=== PATIENT | male | born 1930 | race Caucasian/White ===

== ENCOUNTER 2016-05-04 13:50 | Emergency (ER) | payer MEDICARE, OTHER, MEDICAID ==
[~2016-05-04] VITALS: Ht 185.4 cm; Wt 89.0 kg
[~2016-05-04 13:50] MED LIST: AMITRIPTYLINE H50 M1 PO; ASPIRIN 81M81 MG/TA2 PO; ATIVAN 0.50.5 MG/TAB PO; ATROVENT INHALE14 GM IH; CLARITIN 1010 MG/TAB PO; COLACE 100100 MG/CAP PO; CRESTOR20 MG PO; DEMADEX 20MG20 M1 PO; DILAUDID 4MG TAB4 MG PO; FLEXERIL 1010 MG/TAB PO; FLOMAX 0.40.4 MG/CAP PO; FORADIL AERO0.012 MG; GLUCOPHAGE500 MG/TAB PO; GLUCOTROL10 MG PO; K-TAB20; LANTUS100 U/ML SQ; LASIX 40MG TABL40 MG PO; LIDODERM 5% PATC1 EA TP; MACROBID 1100 MG/CAP PO; MAOX420 MG PO; NORVASC 10MG10 MG PO; PLAVIX 75MG TAB75 MG PO; POTASSIUM IOD PO; PREDNISONE10 MG PO; PRINIVIL20 MG PO; PULMICORT R1 MG/2 ML IH; SINGULAIR 110 MG/TAB PO; TAZTIA180; THEO-DUR 2200 MG/TAB PO; TIROSINT150 MCG PO; VITAMIN B11000 MCG/M IM; ZOCOR 40MG40 MG PO
[2016-05-04 14:01] VITALS: TEMP 97.9
[2016-05-04] MEDS ORDERED: ZITHROMAX 250M250 MG PO (14:28)
[2016-05-04 14:44] LABS: BASO % 0.5 % (0.0-2.0); EOS # 0.3 (0.0-0.7); GRAN # 6.2 (1.4-6.5); GRAN % 70.8 % (42.2-75.2); HEMATOCRIT 40.5 % (42.0-52.0); HEMOGLOBIN 13.8 g/dl (13.5-18.0); LYMPH # 1.5 (1.2-3.4); LYMPH % 17.6 % (20.0-51.0); MEAN CELL VOLUME 84 fl (80.0-100.0); MEAN CORPUSCULAR HEMOGLOBIN 29 pg (27.0-31.0); MEAN CORPUSCULAR HGB CONC 34 g/dl (33.0-37.0); MEAN PLATELET VOLUME 10.4 fl (7.4-10.4); MONO # 0.6 (0.1-0.6); MONO % 7.4 % (1.7-9.3); PLATELET COUNT 268 K/mm3 (130-400); RED BLOOD COUNT 4.81 M/mm3 (4.20-5.60); REDCELL DISTRIBUTION WIDTH-CV 11.8 % (11.5-14.5); WHITE BLOOD COUNT 8.7 K/mm3 (4.8-10.8)
[2016-05-04 14:56] LABS: ANION GAP 12 mmol/L (7-16); BLOOD UREA NITROGEN 28 mg/dL (9-20); CALCIUM 9.3 mg/dL (8.4-10.2); CARBON DIOXIDE 22 mmol/L (22-30); CHLORIDE 95 mmol/L (98-107); CREATININE, serum 1.19 mg/dL (0.66-1.25); POTASSIUM 5.2 mmol/L (3.4-5.0); SODIUM 129 mmol/L (137-145)
[2016-05-04 14:57] LABS: GLUCOSE 470 mg/dL (74-106)
[2016-05-04 15:09] LABS: B-TYPE NATRIURETIC PEPTIDE 139 pg/mL (0-450); TROPONIN-I < 0.012 ng/mL (0.000-0.034)
[2016-05-04 15:50] VITALS: BP 155/84; PULSE 95
[2016-05-04] MEDS ORDERED: TYLENOL 500MG500 MG PO (15:51)
[2016-05-04] MEDS ORDERED: ASPIRIN 81M81 MG/TA2 PO (15:52)
[2016-05-04] MEDS ORDERED: LIPITOR 80MG80 MG PO (15:52)
[2016-05-04] MEDS ORDERED: NORVASC 10MG10 MG PO (15:52)
[2016-05-04] MEDS ORDERED: ALPHAGAN OPHTH D5 ML OU (15:53)
[2016-05-04] MEDS ORDERED: ZYRTEC 10MG10 MG PO (15:54)
[2016-05-04] MEDS ORDERED: REFRESH PLUS 00.4 M1 OP (15:54)
[2016-05-04] MEDS ORDERED: PLAVIX 75MG TAB75 MG PO (15:54)
[2016-05-04] MEDS ORDERED: MAXITROL OPHTH3.5 GM OP (15:55)
== END 2016-05-04 15:51 | disposition home or self-care (01) ==
LOC: COL.ER 13:50
PROVIDERS: Emergency Medicine
DX: J20.9 Acute bronchitis, unspecified (principal); J98.8 Other specified respiratory disorders; E11.9 Type 2 diabetes mellitus without complications; Z79.4 Long term (current) use of insulin
CPT/HCPCS: J1815; J8540

== ENCOUNTER 2017-05-23 11:20 | Outpatient (CLI) | payer MEDICARE, MEDICAID ==
[2017-05-23] VITALS (8 sets, daily range): BP systolic 150–230; BP diastolic 62–110; PULSE 50–61; TEMP 97.3
[~2017-05-23] VITALS: Ht 185.5 cm; Wt 83.6 kg
[~2017-05-23 11:20] MED LIST changes: +ALPHAGAN OPHTH D5 ML OU; +LIPITOR 80MG80 MG PO; +MAXITROL OPHTH3.5 GM OP; +REFRESH PLUS 00.4 M1 OP; +TYLENOL 500MG500 MG PO; +ZITHROMAX 250M250 MG PO; +ZYRTEC 10MG10 MG PO
[2017-05-23] MEDS ORDERED: IPRATROPIUM BROM3 M1 IH (12:56)
[2017-05-23] MEDS ORDERED: PROAIR HFA0.09 MG/AC IH (12:56)
[2017-05-23] MEDS ORDERED: 00186-0370-20 IH (12:58)
[2017-05-23] MEDS ORDERED: SENOKOT S 50 MG1 TAB PO (13:28)
[2017-05-23] MEDS ORDERED: LEVEMIR100 U/ML SQ (13:31)
[2017-05-23] MEDS ORDERED: SYNTHROID0.05 MG/TA PO (13:32)
[2017-05-23] MEDS ORDERED: GLUCOPHAGE500 MG/TAB PO (13:34)
[2017-05-23] MEDS ORDERED: LOPRESSOR 225 MG/TAB PO (13:34)
[2017-05-23] MEDS ORDERED: MS CONTIN 115 MG/TAB PO (13:35)
[2017-05-23] MEDS ORDERED: PROTONIX 40MG T40 MG PO (13:36)
[2017-05-23] MEDS ORDERED: LYRICA 50MG CAP50 MG PO (13:36)
[2017-05-23] MEDS ORDERED: ONGLYZA5 MG PO (13:41)
== END 2017-05-23 19:42 | disposition home or self-care (01) ==
LOC: COL.CAR 11:20
DX: M80.08XA Age-related osteoporosis with current pathological fracture, vertebra(e), initial encounter for fracture (principal); E11.9 Type 2 diabetes mellitus without complications; I25.10 Atherosclerotic heart disease of native coronary artery without angina pectoris; J44.9 Chronic obstructive pulmonary disease, unspecified; E78.5 Hyperlipidemia, unspecified; Z88.0 Allergy status to penicillin; Z88.8 Allergy status to other drugs, medicaments and biological substances; Z91.041 Radiographic dye allergy status
CPT/HCPCS: J0360; J2250; J3010; J7120

== ENCOUNTER 2017-12-06 21:32 | Emergency (ER) | payer MEDICARE, MEDICAID ==
[~2017-12-06] VITALS: Ht 185.4 cm; Wt 83.6 kg
[~2017-12-06 21:32] MED LIST changes: +00186-0370-20 IH; +IPRATROPIUM BROM3 M1 IH; +LEVEMIR100 U/ML SQ; +LOPRESSOR 225 MG/TAB PO; +LYRICA 50MG CAP50 MG PO; +MS CONTIN 115 MG/TAB PO; +ONGLYZA5 MG PO; +PROAIR HFA0.09 MG/AC IH; +PROTONIX 40MG T40 MG PO; +SENOKOT S 50 MG1 TAB PO; +SYNTHROID0.05 MG/TA PO
[2017-12-06 21:37] VITALS: TEMP 97.9
[2017-12-06 22:22] LABS: PROTHROMBIN TIME 10.9 SECONDS (9.7-12.8)
[2017-12-06 22:23] LABS: BASO % 0.5 % (0.0-2.0); EOS # 0.3 (0.0-0.7); EOS % 5.2 % (0-4.0); GRAN # 3.5 (1.4-6.5); GRAN % 60.6 % (42.2-75.2); HEMOGLOBIN 12.2 g/dl (13.5-18.0); LYMPH # 1.4 (1.2-3.4); LYMPH % 23.9 % (20.0-51.0); MEAN CELL VOLUME 85 fl (80.0-100.0); MEAN CORPUSCULAR HEMOGLOBIN 29 pg (27.0-31.0); MEAN CORPUSCULAR HGB CONC 34 g/dl (33.0-37.0); MEAN PLATELET VOLUME 10.7 fl (7.4-10.4); MONO # 0.5 (0.1-0.6); MONO % 9.3 % (1.7-9.3); PLATELET COUNT 232 K/mm3 (130-400); RED BLOOD COUNT 4.19 M/mm3 (4.20-5.60); REDCELL DISTRIBUTION WIDTH-CV 12.7 % (11.5-14.5)
[2017-12-06 22:24] LABS: HEMATOCRIT 35.8 % (42.0-52.0)
[2017-12-06 22:27] LABS: ALANINE AMINOTRANSFERASE 23 U/L (21-72); ALBUMIN 3.7 gm/dL (3.5-5.0); ALKALINE PHOSPHATASE 66 U/L (50-136); ANION GAP 11 mmol/L (7-16); AST,SGOT 20 U/L (15-37); BILIRUBIN,TOTAL 0.6 mg/dL (0.0-1.0); BLOOD UREA NITROGEN 14 mg/dL (9-20); CALCIUM 8.6 mg/dL (8.4-10.2); CARBON DIOXIDE 26 mmol/L (22-30); CHLORIDE 96 mmol/L (98-107); CREATININE, serum 0.98 mg/dL (0.66-1.25); GLUCOSE 273 mg/dL (74-106); SODIUM 132 mmol/L (137-145); TOTAL PROTEIN 6.7 gm/dL (6.4-8.2)
[2017-12-06 22:46] LABS: TROPONIN-I < 0.012 ng/mL (0.000-0.034)
[2017-12-06 23:55] VITALS: BP 180/90; PULSE 62
== END 2017-12-06 23:59 | disposition home or self-care (01) ==
LOC: COL.ER 21:32
PROVIDERS: Emergency Medicine
DX: I73.9 Peripheral vascular disease, unspecified (principal); R07.89 Other chest pain; I10 Essential (primary) hypertension; E11.9 Type 2 diabetes mellitus without complications; J44.9 Chronic obstructive pulmonary disease, unspecified; E78.5 Hyperlipidemia, unspecified; Z79.82 Long term (current) use of aspirin; Z79.4 Long term (current) use of insulin; Z79.02 Long term (current) use of antithrombotics/antiplatelets; Z95.5 Presence of coronary angioplasty implant and graft

== ENCOUNTER 2018-06-06 15:29 | Inpatient (IN) | payer MEDICARE ==
[~2018-06-06] VITALS: Ht 180.3 cm; Wt 93.3 kg
[2018-07-31 05:52] VITALS: BP 142/64; PULSE 63; TEMP 98.4
[2018-07-31] MEDS ORDERED: ACTOS 45MG45 MG/TAB PO (06:15)
[2018-07-31] MEDS ORDERED: LANTUS100 U/ML SQ (06:16)
[2018-07-31] MEDS ORDERED: NESINA25 PO (06:17)
[2018-07-31] MEDS ORDERED: NORVASC 10MG10 MG PO (06:19)
[2018-07-31] MEDS ORDERED: ALPHAGAN OPHTH D5 ML OU (06:20)
[2018-07-31] MEDS ORDERED: FERROUS SU325 MG/TAB PO (06:22)
--- NOTE | 2018-07-31 07:51 | NUR ---
BREAKFAST ORDERED PT HAS HAD SURGERY CANCELLED.
[2018-07-31 08:54] VITALS: BP 181/67; PULSE 72; TEMP 97.2
--- NOTE | 2018-07-31 09:05 | NUR ---
PT ESCORTED TO FRONT VIA WHEEL CHAIR @ 2628.
[2018-08-15] MEDS ORDERED: TYLENOL 500MG500 MG PO (22:09)
[2018-08-15] MEDS ORDERED: ROXICODONE 55 MG/TAB PO (22:11)
[2018-08-15] MEDS ORDERED: ULTRAM 50MG TAB50 MG PO (22:12)
== END 2018-07-31 08:30 | disposition home or self-care (01) | DRG 554 ==
LOC: JCC 07-31 05:34
PROVIDERS: ADMIT Orthopaedic Surgery
DX: M17.11 Unilateral primary osteoarthritis, right knee (principal); E11.9 Type 2 diabetes mellitus without complications; J44.9 Chronic obstructive pulmonary disease, unspecified; I10 Essential (primary) hypertension; H40.9 Unspecified glaucoma; E78.00 Pure hypercholesterolemia, unspecified; Z85.528 Personal history of other malignant neoplasm of kidney; Z79.82 Long term (current) use of aspirin; Z79.4 Long term (current) use of insulin; Z88.0 Allergy status to penicillin; Z86.73 Personal history of transient ischemic attack (TIA), and cerebral infarction without residual deficits; Z87.891 Personal history of nicotine dependence; Z53.8 Procedure and treatment not carried out for other reasons

== ENCOUNTER → 2018-07-10 | Outpatient (CLI) | payer MEDICARE | LOC: COL.VAS 10:37 | DX: Z01.810 Encounter for preprocedural cardiovascular examination (principal); Z86.718 Personal history of other venous thrombosis and embolism ==

== ENCOUNTER → 2018-09-09 | Outpatient (CLI) | payer MEDICARE ==
[~2018-09-09] MED LIST changes: +ACTOS 45MG45 MG/TAB PO; +FERROUS SU325 MG/TAB PO; +NESINA25 PO; +ROXICODONE 55 MG/TAB PO; +ULTRAM 50MG TAB50 MG PO
== END ==
LOC: COL.VAS 14:12
DX: M79.89 Other specified soft tissue disorders (principal)

== ENCOUNTER 2018-10-09 13:40 | Emergency (ER) | payer MEDICARE ==
[~2018-10-09] VITALS: Ht 185.4 cm; Wt 86.4 kg
[2018-10-09 13:48] VITALS: TEMP 97.4
[2018-10-09 15:15] LABS: BASO % 0.3 % (0.0-2.0); EOS # 0.2 (0.0-0.7); EOS % 2.5 % (0-4.0); GRAN # 6.8 (1.4-6.5); GRAN % 73.8 % (42.2-75.2); HEMOGLOBIN 11.2 g/dl (13.5-18.0); LYMPH # 1.3 (1.2-3.4); LYMPH % 14.2 % (20.0-51.0); MEAN CELL VOLUME 92 fl (80.0-100.0); MEAN CORPUSCULAR HEMOGLOBIN 30 pg (27.0-31.0); MEAN CORPUSCULAR HGB CONC 32 g/dl (33.0-37.0); MEAN PLATELET VOLUME 9.6 fl (7.4-10.4); MONO # 0.7 (0.1-0.6); MONO % 7.8 % (1.7-9.3); PLATELET COUNT 204 K/mm3 (130-400); RED BLOOD COUNT 3.79 M/mm3 (4.20-5.60)
[2018-10-09 15:16] LABS: HEMATOCRIT 34.9 % (42.0-52.0)
[2018-10-09 15:19] LABS: COLLECTION METHOD CLEAN CATCH
[2018-10-09 15:26] LABS: ALBUMIN 4.1 gm/dL (3.5-5.0); BILIRUBIN,TOTAL 0.7 mg/dL (0.0-1.0); CALCIUM 9.7 mg/dL (8.4-10.2); CREATININE, serum 1.03 (0.66-1.25); POTASSIUM 4.4 mmol/L (3.4-5.0); TOTAL PROTEIN 7.5 gm/dL (6.4-8.2)
[2018-10-09 15:29] LABS: MUCOUS Present /lpf; PH 6 (5-8); SQUAMOUS EPITHELIAL None Seen /hpf; URINE APPEARANCE Clear; URINE BACTERIA None Seen /hpf; URINE BILIRUBIN Negative (NEGATIVE); URINE BLOOD Negative (NEGATIVE); URINE COLOR Colorless; URINE GLUCOSE Negative (NEGATIVE); URINE KETONE Negative (NEGATIVE); URINE LEUKOCYTE ESTERASE Negative (NEGATIVE); URINE NITRATE Negative (NEGATIVE); URINE PROTEIN(semi-quant) Negative (NEGATIVE); URINE RBC 0-2 /hpf; URINE UROBILINOGEN Negative (NEGATIVE)
[2018-10-09] MEDS ORDERED: NORCO 325 MG-51 TAB PO (18:41)
[2018-10-09] MEDS ORDERED: TOPROL XL 25MG25 MG PO (18:42)
[2018-10-09 19:01] VITALS: BP 131/67; PULSE 84
== END 2018-10-09 19:11 | disposition home or self-care (01) ==
LOC: COL.ER 13:40
PROVIDERS: Emergency Medicine
DX: S32.010A Wedge compression fracture of first lumbar vertebra, initial encounter for closed fracture (principal); I48.91 Unspecified atrial fibrillation; Z98.1 Arthrodesis status; Z79.82 Long term (current) use of aspirin; Z79.02 Long term (current) use of antithrombotics/antiplatelets; Z79.4 Long term (current) use of insulin; Z91.81 History of falling; W01.10XA Fall on same level from slipping, tripping and stumbling with subsequent striking against unspecified object, initial encounter
CPT/HCPCS: J1170; J1885

== ENCOUNTER 2018-10-13 19:00 | Emergency (ER) | payer MEDICARE ==
[~2018-10-13] VITALS: Ht 185.4 cm; Wt 86.4 kg
[~2018-10-13 19:00] MED LIST changes: +NORCO 325 MG-51 TAB PO; +TOPROL XL 25MG25 MG PO
[2018-10-13 19:04] VITALS: BP 119/56; TEMP 97.5
[2018-10-13] MEDS ORDERED: FLEXERIL 1010 MG/TAB PO (21:14)
[2018-10-13] MEDS ORDERED: PREDNISONE20 MG PO (21:14)
[2018-10-13 21:21] VITALS: PULSE 100
== END 2018-10-13 21:21 | disposition home or self-care (01) ==
LOC: COL.ER 19:00
DX: M54.17 Radiculopathy, lumbosacral region (principal); E11.9 Type 2 diabetes mellitus without complications; I10 Essential (primary) hypertension; Z88.0 Allergy status to penicillin; Z79.82 Long term (current) use of aspirin
CPT/HCPCS: J2060; J3010; J7512

== ENCOUNTER 2018-10-24 12:27 | Observation (INO) | payer MEDICARE ==
[2018-10-24] VITALS (10 sets, daily range): BP systolic 117–163; BP diastolic 74–97; PULSE 69–122; TEMP 97.5–98.3
[~2018-10-24] VITALS: Ht 185.4 cm; Wt 90.2 kg
[~2018-10-24 12:27] MED LIST changes: +PREDNISONE20 MG PO
--- NOTE | 2018-10-24 14:13 | NUR ---
ALL MEDICATIONS GIVEN VORB WITH MD. SEE MERGE FOR ALL MEDICATION ADMIN TIMES. SEE MERGE FOR RASS ASSESSMENTS DURING AND POST PROCEDURE.
--- NOTE | 2018-10-24 15:10 | NUR ---
Report received from slab lifting supervisor RNDiallo. Pt arrived to EU room11 via bed. Pt flat, resting, easily arousable. HR Afib 100-120s on monitor. lungs CTA. warm blanket given to pt for comfort. Pt's dtr at bedside.
--- NOTE | 2018-10-24 15:29 | NUR ---
Pt's dtr stated pt has appointment with Dr Pearce then will be referred to transitional living specialist for Afib. Pt is changing PCP and will be going to Dr Chaney in [place]. Dtr will call PCP to set up appointment.
--- NOTE | 2018-10-24 16:02 | NUR ---
pt's dtr received callback from Dr Chaney's office. Leila from Dr Chaney's office updated on pt status. Appointment made for 4pm on 10/[address] Chaney. Pt's dtr notified of appointment.
--- NOTE | 2018-10-24 16:53 | NUR ---
Received call back from Dr Mart's nurse. would like pt to stay as inpt to monitor Afib. Dr Gruber notified and will call Dr Byrne to admit. Updated pt's dtr of plan of care r/t inpatient status to monitor Afib. Dtr verbalized understanding. HR Afib 90-100s on monitor. Pt eating dinner at this time. Denies any pain.
--- NOTE | 2018-10-24 18:06 | NUR ---
Report given to Surgical floor RNAletha.
--- NOTE | 2018-10-24 18:25 | NUR ---
PATIENT ARRIVED TO ROOM 343 FROM [facility]. PATIENT SETTELED INTO ROOM. PRESENT AT THE BEDSIDE.
--- NOTE | 2018-10-24 19:02 | NUR ---
REPORT GIVEN TO SHABBIR STORY.
--- NOTE | 2018-10-24 19:32 | NUR ---
Restingin bed. Assessment complete. Lungs clear. Heart sounds normal. Bowels active x4. Pulses strong throughout. Bilateral lower leg edema +1. Right great toe unstageable ulcer-scabbed over with black skin. INT right AC without complications. Denies pain. Denies needs at this time. Call light in reach.
--- NOTE | 2018-10-24 21:18 | NUR ---
Dr. Huddleston to see patient. Verbal order for xarelto 20mg daily- if okay with Dr. Rojas, echocardiogram, cardioversion and KAYLEE 10/25 at 1400, NPO at 0600. Cleared with Dr. Rojas. Will provide xarelto to patient.
[2018-10-24 21:30] LABS: BASO % 0.3 % (0.0-2.0); EOS # 0.2 (0.0-0.7); EOS % 2.6 % (0-4.0); GRAN # 5.4 (1.4-6.5); GRAN % 74.3 % (42.2-75.2); HEMATOCRIT 37.3 % (42.0-52.0); HEMOGLOBIN 12.2 g/dl (13.5-18.0); LYMPH # 1.1 (1.2-3.4); LYMPH % 15.1 % (20.0-51.0); MEAN CELL VOLUME 89 fl (80.0-100.0); MEAN CORPUSCULAR HEMOGLOBIN 29 pg (27.0-31.0); MEAN CORPUSCULAR HGB CONC 33 g/dl (33.0-37.0); MEAN PLATELET VOLUME 10.1 fl (7.4-10.4); MONO # 0.5 (0.1-0.6); MONO % 6.6 % (1.7-9.3); PLATELET COUNT 204 K/mm3 (130-400); RED BLOOD COUNT 4.19 M/mm3 (4.20-5.60); REDCELL DISTRIBUTION WIDTH-CV 14.4 % (11.5-14.5)
[2018-10-24 21:40] LABS: ALANINE AMINOTRANSFERASE 12 U/L (21-72); ALBUMIN 4.1 gm/dL (3.5-5.0); ALKALINE PHOSPHATASE 135 U/L (50-136); ANION GAP 11 mmol/L (7-16); AST,SGOT 23 U/L (15-37); BILIRUBIN,TOTAL 0.5 mg/dL (0.0-1.0); BLOOD UREA NITROGEN 21 mg/dL (9-20); CALCIUM 9.2 mg/dL (8.4-10.2); CARBON DIOXIDE 29 mmol/L (22-30); CHLORIDE 101 mmol/L (98-107); CHOLESTEROL 103 mg/dL (120-200); CHOLESTEROL RISK RATIO 2.1; CREATININE, serum 0.96 (0.66-1.25); GLUCOSE 189 mg/dL (74-106); HDL CHOLESTEROL 48 mg/dL; LDL CHOLESTEROL 38 mg/dL; POTASSIUM 4.5 mmol/L (3.4-5.0); SODIUM 141 mmol/L (137-145); TOTAL PROTEIN 7.4 gm/dL (6.4-8.2); TRIGLYCERIDE 87 mg/dL
[2018-10-24 21:52] LABS: TROPONIN-I < 0.012 ng/mL (0.000-0.035)
[2018-10-24 22:59] LABS: INR 1.1 (0.8-3.0); PROTHROMBIN TIME 12.5 SECONDS (9.7-12.8)
--- NOTE | 2018-10-24 23:41 | NUR ---
Reports 7/10 back pain. Provided with schedule lyrica and PRN tylenol. Denies other needs at this time. Call light in reach.
[2018-10-25] VITALS (14 sets, daily range): BP systolic 145–179; BP diastolic 60–89; PULSE 76–95; TEMP 97.8–98.6
--- NOTE | 2018-10-25 02:25 | NUR ---
Resting in bed asleep. Daughter at bedside. Call light in reach.
--- NOTE | 2018-10-25 05:31 | NUR ---
Patient had uneventful night. Required x1 dose of tylenol. Daughter remained at bedside throughout evening. Denies needs. Call light in reach.
--- NOTE | 2018-10-25 06:42 | NUR ---
Report given to SHABBIR Pompa
--- NOTE | 2018-10-25 08:00 | NUR ---
PATIENT IS UP TO THE CHAIR THIS MORNING. PATIENT IS A&OX4. BP ELEVATED, HEART RHYTHM IRREGULAR WITH REGULAR RATE, OTHERWISE VSS. TELE IN PLACE. BOWEL SOUNDS ACTIVE ALL FOUR QUADRANTS. PATIENT IS NPO FOR PROCEDURE. PATIENT DENIES ANY COMPLAINTS OF N/V. SKIN IS DRY. ECCHYMOSIS TO RUE NOTED. BACK INCISION SITE DRESSED WITH BANDAID WITH SCANT AMOUNT OF OLD BLOODY DRAINAGE PRESENT. POSITIVE PEDAL PULSES EQUAL BILATERALLY. 1+ PITTING-EDEMA TO BLE. HEALING, CLOSED, UNSTAGED ULCER TO LEFT GREAT TOE AND RESIDENTIAL ASSISTANT. IV FLUIDS INFUSING TO LEFT AC IV VIA PUMP. CALL LIGHT WITHIN REACH. DAUGHTER PRESENT AT THE BEDSIDE. NO OTHER NEEDS AT THIS TIME.
--- NOTE | 2018-10-25 11:38 | NUR ---
Initial visit; Patient thanked Card Decorator for lookin g in on him and offering God'sblessings and to keep him in her prayers.
--- NOTE | 2018-10-25 12:24 | NUR ---
KAYLEE AND ELECTIVE CARDIOVERSION CONSENT FORMS SIGNED AND ON PATIENT'S CHART.
--- NOTE | 2018-10-25 12:31 | NUR ---
ANESTHESIA NOTIFIED OF CONSCIOUS SEDATION CONSULT FOR PATIENT'S KAYLEE AND ELECTIVE CARDIOVERSION AT 1400.
--- NOTE | 2018-10-25 13:42 | NUR ---
LR TO GRAVITY FLOW TUBING AND INFUSING TO PATIENT'S RIGHT AC IV.
--- NOTE | 2018-10-25 15:34 | NUR ---
FEDE met with the patient, patient's daughter (Nohemi), and grandson (Regan) to discuss discharge plan. The patient lives in [place] with his grandson, Regan. He reports needing assistance with bathing and has a cane, walker, and motorscooter. He states that he receives assistance with bathing from [facility][Note 3]. FEDE contacted and confirmed that the patient has private duty services approved from [facility] from Mejia at [facility]. The patient's PCP is Dr. Seven Mart and he receives his medications from [facility]. He reports no difficulties obtaining his meds. The patient's advanced directives are in EMR. His DPOA-HC is his daughter, Dana Bowman, and the alternate is his daughter, Nohemi Rosa. FEDE then discussed PT/OT recommendation of [facility]. The patient reports that he would be agreeable to add on those services. FEDE contacted and faxed Mejia at [facility] updates. Mejia reports that they can accept the patient for those services. The patient plans to return home with his grandson and home health through [facility] upon discharge. FEDE to continue to follow.
--- NOTE | 2018-10-25 17:00 | NUR ---
PATIENT ARRIVED BACK TO ROOM 343 VIA BED FROM MUTUAL FUND ACCOUNTANT. PATIENT SETTELED INTO ROOM. PATIENT IS A&O. POST-OP VSS.
--- NOTE | 2018-10-25 17:25 | NUR ---
DR. FLORES CALLED AND NOTIFIED THAT THE PATIENT IS HAVING SHOOTING, SHARP PAINS MOVE UP FROM THE ANKLES, CAUSING THE PATIENT LEGS TO JERK.
--- NOTE | 2018-10-25 19:25 | NUR ---
Report received from Aletha SHEA. Pt resting in bed. Family at bedside. No distress noted. No needs noted. Pt thought he would be discharging tonight, but will stay another night to meet with social work.
--- NOTE | 2018-10-25 19:27 | NUR ---
REPORT GIVEN TO SHABBIR GARNETT.
[2018-10-25 20:42] LABS: POTASSIUM 4.1 mmol/L (3.4-5.0)
[2018-10-25 20:45] LABS: INR 1.7 (0.8-3.0); PROTHROMBIN TIME 20.6 SECONDS (9.7-12.8)
--- NOTE | 2018-10-25 21:05 | NUR ---
Pt resting in bed. Family at bedside. No distress noted. Pt is unhappy that he does not get to go home tonight, but he is understanding. Respirations even and unlabored. Lungs clear. Telemetry checked. Heart sounds normal. Pt is sinus rhythm 80s. Abdomen soft, nontender. BS+. 1+ edema in BLE. Pulses equal bilaterally. Unstagable pressure ulcer to L great toe. Ecchymosis to MONAE. Bandaid to back Vertibroplasty site. R AC IV site converted to INT. Pt tolerating PO fluids. Pt refusing PM Levemir. CBG is currently 156 per pts device. Pt reports hx of blood sugar dropping rapidly with insulin adminsitration. Pt states he has not been taking his insulin at home. No other needs noted at this time. Will continue to monitor.
[2018-10-25 21:16] LABS: THYROID STIMULATING HORMONE 1.22 uIU/mL (0.465-4.680)
[2018-10-26 00:03] VITALS: BP 147/57; PULSE 75; TEMP 97.6
[2018-10-26 03:13] VITALS: BP 160/71; PULSE 80; TEMP 97.6
--- NOTE | 2018-10-26 06:37 | NUR ---
Pt sleeping this AM but easily arousable. No complaints. Pt denies pain. Telemetry in place. Pt has been SR all night in 70s-80s. No needs noted.
[2018-10-26 08:22] LABS: HEMATOCRIT 37.5 % (42.0-52.0); HEMOGLOBIN 12.2 g/dl (13.5-18.0); MEAN CELL VOLUME 90 fl (80.0-100.0); MEAN CORPUSCULAR HEMOGLOBIN 29 pg (27.0-31.0); MEAN CORPUSCULAR HGB CONC 33 g/dl (33.0-37.0); PLATELET COUNT 246 K/mm3 (130-400); RED BLOOD COUNT 4.18 M/mm3 (4.20-5.60); REDCELL DISTRIBUTION WIDTH-CV 14.4 % (11.5-14.5)
[2018-10-26 08:32] LABS: CALCIUM 9.5 mg/dL (8.4-10.2); CREATININE, serum 0.78 (0.66-1.25); POTASSIUM 4.2 mmol/L (3.4-5.0)
[2018-10-26 08:51] VITALS: BP 163/63; PULSE 84; TEMP 97.5
[2018-10-26 10:47] LABS: BAND 1 % (0-10); EOSINOPHIL 1 % (0-4); LYMPHOCYTE 20 % (20.0-51.0); NEUTROPHILS 74 % (42.0-75.2); PLATELET ESTIMATE NORMAL (NORMAL)
[2018-10-26] MEDS ORDERED: XARELTO20 MG PO (12:18)
[2018-10-26] MEDS ORDERED: PACERONE400 MG PO (12:18)
[2018-10-26 12:37] VITALS: PULSE 73; TEMP 97.8
[2018-10-26 12:39] VITALS: BP 109/57
--- NOTE | 2018-10-26 14:00 | NUR ---
Back pain improved with prn meds. Ambulatory with walker and sat up in recliner. Heart rate regular in 70's. Prescriptions given. Dismissed to home per w/c with daughter.
--- NOTE | 2018-10-26 14:33 | NUR ---
SW update, patient DC with home health [facility]. Faxed DC/orders
== END 2018-10-26 14:00 | disposition home health service (06) ==
LOC: COL.CAR 12:27 → SURG 18:25 → COL.CAR 19:09 → SURG 19:11
PROVIDERS: Internal Medicine Interventional Cardiology; Nurse Practitioner; Physician Assistant; ADMIT Hospitalist
DX: S32.040A Wedge compression fracture of fourth lumbar vertebra, initial encounter for closed fracture (principal); W19.XXXA Unspecified fall, initial encounter; Z91.81 History of falling; I48.91 Unspecified atrial fibrillation; Z90.5 Acquired absence of kidney; E11.9 Type 2 diabetes mellitus without complications; Z79.4 Long term (current) use of insulin; Z85.528 Personal history of other malignant neoplasm of kidney; Z85.028 Personal history of other malignant neoplasm of stomach; K21.9 Gastro-esophageal reflux disease without esophagitis; K44.9 Diaphragmatic hernia without obstruction or gangrene; I08.3 Combined rheumatic disorders of mitral, aortic and tricuspid valves; I73.9 Peripheral vascular disease, unspecified; I25.10 Atherosclerotic heart disease of native coronary artery without angina pectoris; I11.0 Hypertensive heart disease with heart failure; I50.9 Heart failure, unspecified; Z95.5 Presence of coronary angioplasty implant and graft; Z95.828 Presence of other vascular implants and grafts; Z79.82 Long term (current) use of aspirin; Z79.899 Other long term (current) drug therapy; Z79.02 Long term (current) use of antithrombotics/antiplatelets; Z88.0 Allergy status to penicillin; Z87.891 Personal history of nicotine dependence; Z96.651 Presence of right artificial knee joint
CPT/HCPCS: 99239; C1713; G0378; G0379; J1200; J1815; J2250; J2704; J3010; J7120

== ENCOUNTER 2020-07-15 14:27 | Inpatient (IN) | payer OTHER ==
[~2020-07-15 14:27] MED LIST changes: +PACERONE400 MG PO; +XARELTO20 MG PO
[2020-07-15 16:00] VITALS: BP 140/78; PULSE 62; TEMP 98.6
--- NOTE | 2020-07-15 17:46 | NUR ---
VONNIE AMARO PRESENT IN ROOM. ONE TIME DOSE OF IV MORPHINE GIVEN AT THIS TIME BY STUDENT NURSE.
[2020-07-15] MEDS ORDERED: CORDARONE200 MG/TAB PO (18:10)
--- NOTE | 2020-07-15 18:10 | NUR ---
X-RAY AND CARDIOPULMONARY CALLED AND NOTIFIED OF EKG AND CHEST X-RAY ORDERS. ORTHO CALLED AND NOTIFIED OF CONSULT FOR LEFT HIP FRACTURE.
[2020-07-15] MEDS ORDERED: NORVASC 10MG10 MG PO (18:11)
[2020-07-15] MEDS ORDERED: CRESTOR 10MG10 MG PO (18:12)
[2020-07-15] MEDS ORDERED: ZESTRIL 20MG TA20 MG PO (18:13)
[2020-07-15] MEDS ORDERED: DEMADEX 20MG20 M1 PO (18:16)
[2020-07-15] MEDS ORDERED: SYNTHROID0.1 MG/TAB PO (18:18)
[2020-07-15] MEDS ORDERED: FLOMAX 0.40.4 MG/CAP PO (18:18)
[2020-07-15] MEDS ORDERED: PROTONIX 40MG T40 MG PO (18:20)
[2020-07-15] MEDS ORDERED: ZYRTEC 10MG10 MG PO (18:20)
[2020-07-15] MEDS ORDERED: FERROUSAL325 MG PO (18:21)
[2020-07-15] MEDS ORDERED: FLAREX 5 ML5 M1 OP (18:22)
[2020-07-15] MEDS ORDERED: PRESERVISIONLUT PO (18:22)
[2020-07-15 19:06] VITALS: BP 151/68; PULSE 66; TEMP 98.9
[2020-07-15 19:19] LABS: BASO % 0.4 % (0.0-2.0); EOS # 0.1 (0.0-0.7); EOS % 1.4 % (0-4.0); GRAN # 7.5 (1.4-6.5); GRAN % 78.3 % (42.2-75.2); HEMOGLOBIN 10.5 g/dl (13.5-18.0); LYMPH # 1.1 (1.2-3.4); LYMPH % 11.6 % (20.0-51.0); MEAN CELL VOLUME 94 fl (80.0-100.0); MEAN CORPUSCULAR HEMOGLOBIN 29 pg (27.0-31.0); MEAN CORPUSCULAR HGB CONC 31 g/dl (33.0-37.0); MEAN PLATELET VOLUME 9.9 fl (7.4-10.4); MONO # 0.7 (0.1-0.6); MONO % 7.4 % (1.7-9.3); PLATELET COUNT 208 K/mm3 (130-400); RED BLOOD COUNT 3.59 M/mm3 (4.20-5.60); REDCELL DISTRIBUTION WIDTH-CV 13.7 % (11.5-14.5)
[2020-07-15 19:24] LABS: ALBUMIN 3.8 gm/dL (3.5-5.0); BILIRUBIN,TOTAL 0.3 mg/dL (0.0-1.0); CALCIUM 8.8 mg/dL (8.4-10.2); CREATININE, serum 1.33 (0.66-1.25); POTASSIUM 4.3 mmol/L (3.4-5.0); TOTAL PROTEIN 7.1 gm/dL (6.4-8.2)
[2020-07-15 19:28] LABS: INR 1.1 (0.8-3.0); PROTHROMBIN TIME 12.1 SECONDS (9.7-12.8)
[2020-07-15 19:29] LABS: HEMATOCRIT 33.6 % (42.0-52.0)
[2020-07-15] MEDS ORDERED: NORCO 325 MG-51 TAB PO (19:40)
[2020-07-15] MEDS ORDERED: DOXYCYCLINE 10100 MG PO (19:40)
--- NOTE | 2020-07-15 19:42 | NUR ---
ADMISSION ASSESSMENTS COMPLETE. MED REC AND ALLERGIES REVIEWED. REPORT GIVEN TO SHABBIR PARR.
--- NOTE | 2020-07-15 22:00 | NUR ---
Pt. sitting up in bed Pt. is a&OX3 assessment complete. IV to lt. ac patent, IV fluids infusing per orders. Pt. reports pain at a 4 on pain scale. Aguilera catheter to DD, clear yellow urine noted. Pt. denies further needs, call light within reach.
[2020-07-15 22:07] VITALS: BP 104/57; PULSE 91; TEMP 100.7
[2020-07-15 22:14] VITALS: BP 164/69; PULSE 66; TEMP 98.3
[2020-07-16] VITALS (7 sets, daily range): BP systolic 150–174; BP diastolic 56–60; PULSE 63–71; TEMP 97.9–99
[2020-07-16 02:53] LABS: COLLECTION METHOD CLEAN CATCH
[2020-07-16 02:59] LABS: MUCOUS Present /lpf; PH 9 (5-8); SQUAMOUS EPITHELIAL None Seen /hpf; URINE APPEARANCE Clear; URINE BACTERIA None Seen /hpf; URINE BILIRUBIN Negative (NEGATIVE); URINE BLOOD 2+ (NEGATIVE); URINE COLOR Yellow; URINE GLUCOSE Negative (NEGATIVE); URINE KETONE Negative (NEGATIVE); URINE LEUKOCYTE ESTERASE 1+ (NEGATIVE); URINE NITRATE Negative (NEGATIVE); URINE PROTEIN(semi-quant) 1+ (NEGATIVE); URINE RBC >50 /hpf
--- NOTE | 2020-07-16 07:35 | NUR ---
THIS NURSE REVIEWED AND COMPLETED AM SHIFT ASSESSMENT WITH SN JENNA. DOCUMENTED ASSESSMENT REVIEWED BY THIS NURSE.
--- NOTE | 2020-07-16 07:35 | NUR ---
PATIENT SLEEPY BUT EASY TO AWAKE. ALERT & ORIENTED X4. VITAL SIGNS STABLE. PATIENT ADMITTED WITH LEFT HIP FRACTURE. PATIENT COMPLAINING OF LEFT HIP AND LOWER STOMACH PAIN 9. PATIENT NPO FOR POSSIBLE SURGERY AND DENIES N/V. PULSES 2+ AND SKIN WARM ON ALL 4 EXTREMITIES. BILATERAL LOWER EXTREMITY EDEMA WITH 1+ PITTING. FEET AND HEELS DRY AND FLAKY WITH SKIN INTACT. SN RUSTAM TO APPLY TAJ HOSE AND SCDS. LEFT FOREAARM SKIN CANCER REMOVAL COVERED WITH VASELINE GAUZE & BANDAID THAT IS CLEAN, DRY, & INTACNT. LEFT ELBOW SKIN TEAR COVERED WITH GAUZE AND PAPER TAPE WITH BLOODY SHADOW AND INTACT. INDWELLING PEREZ TO DEPENDENT DRAINAGE WITH CLEAR YELLOW URINE. IV LEFT AC TO INT WITH DRESSING CLEAN, DRY, & INTACT. PATIENT DENIES OTHER NEEDS AT THIS TIME. WILL CONTINUE TO MONITOR AND PROVIDE PAIN MANAGEMENT.
--- NOTE | 2020-07-16 14:51 | NUR ---
Logging Rafter Laborer met with patient to discuss discharge planning. Patient lives in [place] with his grandson, Regan and sees Dr. Seven Mart for primary care. Patient obtains medications from [facility] in [place] and has a walker, cane, and scooter at home. Patient states he is normally independent with ADLS and still shops for his own groceries. Patient has Advance Directives in EMR which designate his daughters, Dana (ph#[phone]) and Nohemi (ph#[phone]) as DPOA-HC. SW discussed discharge plan with patient and advised he may need post acute rehab. SW reviewed post acute options in including [facility] and [facility]. Patient states he does not want to go to [facility] but would like to go to [facility]. FEDE contacted Ric at [facility] and faxed referral. Ric advised as long as patient is making progress they could likely accept. FEDE then contacted patient's daughter, Dana to review discharge plan. Dana is in agreement with discharge to [facility] and advised she would be able to provide transport upon discharge. FEDE discussed a second preference with Dana who advised she would like a referral sent to [facility]. Later in the afternoon, FEDE contacted Anahi at [facility]. Anahi recognized patient's name and stated they would not be able to accept due to a previous broken contract. FEDE will continue to follow. Discharge Plan: Awaiting screen from [facility] and PT/OT evaluation after surgery.
--- NOTE | 2020-07-16 16:20 | NUR ---
PATIENTS LEFT FOREARM INCISION SITE AND SKIN TEAR DRESSINGS REMOVED AND RE-DRESSED WITH VASELINE GAUZE, NON-ADHERANT GAUZE, HYPAFIX AND MEPLEX. PATIENT REPOSITIONED IN BED AT THIS TIME. PAIN MEDICATIONS ADMINISTERED.
[2020-07-17] VITALS (12 sets, daily range): BP systolic 108–178; BP diastolic 50–77; PULSE 60–89; TEMP 97.4–98.6
--- NOTE | 2020-07-17 05:45 | NUR ---
PAtient cleaned up, in a new gown, and took his dentures out. Consent is signed and on the chart. Patient has not had anything to eat or drink since last night before midnight.
--- NOTE | 2020-07-17 06:00 | NUR ---
Patient down to OR via bed.
--- NOTE | 2020-07-17 06:11 | NUR ---
PAtient down to ER via bed.
[2020-07-17 11:45] LABS: MEAN CELL VOLUME 90 fl (80.0-100.0); MEAN CORPUSCULAR HGB CONC 33 g/dl (33.0-37.0); PLATELET COUNT 168 K/mm3 (130-400); REDCELL DISTRIBUTION WIDTH-CV 13.7 % (11.5-14.5)
[2020-07-17 11:46] LABS: HEMATOCRIT 29.8 % (42.0-52.0); HEMOGLOBIN 9.7 g/dl (13.5-18.0); MEAN CORPUSCULAR HEMOGLOBIN 29 pg (27.0-31.0)
[2020-07-17 11:50] LABS: CALCIUM 8.2 mg/dL (8.4-10.2); CREATININE, serum 0.83 (0.66-1.25)
[2020-07-17 13:01] LABS: BAND 2 % (0-10); LYMPHOCYTE 6 % (20.0-51.0); NEUTROPHILS 91 % (42.0-75.2)
--- NOTE | 2020-07-17 22:39 | NUR ---
Patient states he has to have a bowel movement and would like to try and get up. PAtient has feeling in his leg and is able to move it. With assist of 2, patient stood up beside the bed. When trying to transfer to the bedisde commode, patient experienced a lot of pain and said he wouldn't be able to make it. Sat patient back down and tried again a couple times. PAtient did not feel comfortable transferring to bedside commode and refused the bed wei. PAteint stated he would wait a little and maybe try again later.
[2020-07-18 04:07] VITALS: BP 148/53; PULSE 58; TEMP 97.6
--- NOTE | 2020-07-18 06:45 | NUR ---
Patient's EJ was laying on his lap and he stated he scratched it out. Tip was intact. Patient was not bleeding. Sutures removed.
[2020-07-18 07:18] LABS: BASO % 0.1 % (0.0-2.0); GRAN # 10.3 (1.4-6.5); GRAN % 80.8 % (42.2-75.2); MEAN CELL VOLUME 93 fl (80.0-100.0); MEAN CORPUSCULAR HGB CONC 31 g/dl (33.0-37.0); MEAN PLATELET VOLUME 10.4 fl (7.4-10.4); MONO # 1.3 (0.1-0.6); MONO % 9.8 % (1.7-9.3); PLATELET COUNT 192 K/mm3 (130-400); RED BLOOD COUNT 2.86 M/mm3 (4.20-5.60); REDCELL DISTRIBUTION WIDTH-CV 13.7 % (11.5-14.5)
[2020-07-18 07:22] LABS: HEMATOCRIT 26.6 % (42.0-52.0); HEMOGLOBIN 8.3 g/dl (13.5-18.0); MEAN CORPUSCULAR HEMOGLOBIN 29 pg (27.0-31.0)
[2020-07-18 07:24] LABS: CALCIUM 8.1 mg/dL (8.4-10.2); CREATININE, serum 0.84 (0.66-1.25); POTASSIUM 4.7 mmol/L (3.4-5.0)
[2020-07-18 08:13] VITALS: BP 131/51; PULSE 120; TEMP 98.3
[2020-07-18 12:31] VITALS: BP 112/49; PULSE 60; TEMP 98.1
[2020-07-18 17:51] VITALS: BP 115/41; PULSE 61; TEMP 97.7
[2020-07-18 20:57] VITALS: BP 135/57; PULSE 57; TEMP 97.8
--- NOTE | 2020-07-18 21:00 | NUR ---
Patient up to bedside commode with sit to stand. Continent of stool. Napanoch administered for pain. Extra blankets provided. No additional needs at this time. Call light in reach.
[2020-07-18 21:21] VITALS: PULSE 62
[2020-07-19 00:12] VITALS: BP 127/53; PULSE 59; TEMP 97.6
[2020-07-19 03:59] VITALS: BP 128/43; PULSE 64; TEMP 97.6
[2020-07-19 07:38] VITALS: BP 109/34; PULSE 66; TEMP 98.1
[2020-07-19 07:42] LABS: BASO % 0.2 % (0.0-2.0); EOS # 0.2 (0.0-0.7); EOS % 1.9 % (0-4.0); GRAN # 7.6 (1.4-6.5); GRAN % 78.1 % (42.2-75.2); HEMATOCRIT 24.3 % (42.0-52.0); HEMOGLOBIN 7.5 g/dl (13.5-18.0); LYMPH # 1.1 (1.2-3.4); LYMPH % 11.1 % (20.0-51.0); MEAN CELL VOLUME 95 fl (80.0-100.0); MEAN CORPUSCULAR HEMOGLOBIN 29 pg (27.0-31.0); MEAN CORPUSCULAR HGB CONC 31 g/dl (33.0-37.0); MEAN PLATELET VOLUME 10.5 fl (7.4-10.4); MONO # 0.7 (0.1-0.6); MONO % 7.6 % (1.7-9.3); PLATELET COUNT 184 K/mm3 (130-400); RED BLOOD COUNT 2.57 M/mm3 (4.20-5.60); REDCELL DISTRIBUTION WIDTH-CV 14.1 % (11.5-14.5)
[2020-07-19 07:50] LABS: CALCIUM 7.8 mg/dL (8.4-10.2); CREATININE, serum 1.05 (0.66-1.25); POTASSIUM 3.9 mmol/L (3.4-5.0)
--- NOTE | 2020-07-19 07:50 | NUR ---
Patient did well with breakfast. Repositioned in bed. Tolerated am medication. [place] for pain per request. No iv. Will montior.
[2020-07-19 08:41] LABS: IRON,SERUM 28 ug/dL (35-150)
[2020-07-19 08:50] LABS: TOTAL IRON BINDING CAPACITY 192 ug/dL (261-462)
[2020-07-19] MEDS ORDERED: TYLENOL 325MG325 MG PO (09:33)
[2020-07-19] MEDS ORDERED: NORCO 325 MG-7.1 TAB PO (09:46)
[2020-07-19 10:59] VITALS: BP 109/34; PULSE 66; TEMP 98.1
--- NOTE | 2020-07-19 11:00 | NUR ---
Patient assisted with hygiene. Atul hose off. Bed bath provided. Lotion to skin. New dressing to Lfa to sutures & to skin tear on elbow. New dressing to left hip. General Lithographic Worker assist with hygiene. Lunch ordered. Will await his daughter to arrive for transfer. Hospitalist team has rounded & discharge orders obtained.
[2020-07-19 12:17] VITALS: BP 108/49; PULSE 58; TEMP 99
--- NOTE | 2020-07-19 13:20 | NUR ---
Patient ready for discharge to [facility] bed. Report called to nurse to resumes cares, all questions answered. Patient daughter taking him to facility. Patient was a heavy 3 assist to get into her truck. Gaitbelt used for safety. 2 tabs norco prior discharge for paitients pain.
--- NOTE | 2020-07-19 14:02 | NUR ---
Full Time attended clinical rounds with the team and patient is ready for discharge today. FEDE contacted Ric at [facility] and faxed clinical updates. Ric advised that patient will need a COVID test. FEDE requested COVID test order from VONNIE Crockett. After review of the updates, Ric advised they can accept today, however wants to make sure patient understands that if he needs additional rehab after swing bed, they would make referrals to SNF. FEDE advised that patient does not want to go to [facility] in [place] and Ric advised referrals could be sent else where. FEDE met with patient about this and he was agreeable to this plan as long as it was not [facility]. FEDE contacted patient's daughter, Dana and also reviewed the above information. Dana will pecan picker patient at 1300 to take him to [facility]. FEDE contacted Ric to give transport time. VONNIE Crockett completed dr to call to Dr. Jennifer Mart, accepting physician. FEDE also provided report # to Britni SHEA. FEDE faxed negative COVID results and discharge orders to Ric at [facility]. No additional needs at this time.
[2020-07-19 22:14] LABS: FOLATE (FOLIC ACID) 4.6 ng/mL (7.0-31.4)
== END 2020-07-19 13:30 | DRG 481 ==
LOC: SURG 14:27
PROVIDERS: Orthopaedic Surgery; Physician Assistant; ADMIT Student in an Organized Health Care Education/Training Program
PROC: 0QH706Z Insertion of Intramedullary Internal Fixation Device into Left Upper Femur, Open Approach (ICD-10-PCS; principal; 2020-07-17 07:00)
DX: S72.142A Displaced intertrochanteric fracture of left femur, initial encounter for closed fracture (principal); N39.0 Urinary tract infection, site not specified; I50.30 Unspecified diastolic (congestive) heart failure; J44.9 Chronic obstructive pulmonary disease, unspecified; I11.0 Hypertensive heart disease with heart failure; Z96.651 Presence of right artificial knee joint; E11.9 Type 2 diabetes mellitus without complications; E03.9 Hypothyroidism, unspecified; I73.9 Peripheral vascular disease, unspecified; I25.10 Atherosclerotic heart disease of native coronary artery without angina pectoris; G47.33 Obstructive sleep apnea (adult) (pediatric); I48.91 Unspecified atrial fibrillation; D64.9 Anemia, unspecified; Z20.822 Contact with and (suspected) exposure to COVID-19; Z85.53 Personal history of malignant neoplasm of renal pelvis; Z79.82 Long term (current) use of aspirin
CPT/HCPCS: 99222-AI; 99232-AI; 99233-AI; 99239; A9284; C1713; C1769; J0690; J0696; J1815; J2250; J2270; J2405; J2704; J2795; J7030

== ENCOUNTER 2020-09-01 08:32 | Outpatient (CLI) | payer MEDICARE ==
[~2020-09-01] VITALS: Ht 185.4 cm; Wt 78.5 kg
[2020-09-01] VITALS (7 sets, daily range): BP systolic 141–199; BP diastolic 67–93; PULSE 54–66; TEMP 97.7
[~2020-09-01 08:32] MED LIST changes: +CORDARONE200 MG/TAB PO; +CRESTOR 10MG10 MG PO; +DOXYCYCLINE 10100 MG PO; +FERROUSAL325 MG PO; +FLAREX 5 ML5 M1 OP; +NORCO 325 MG-7.1 TAB PO; +PRESERVISIONLUT PO; +SYNTHROID0.1 MG/TAB PO; +TYLENOL 325MG325 MG PO; +ZESTRIL 20MG TA20 MG PO
--- NOTE | 2020-09-01 11:01 | NUR ---
SEE MERGE DOCUMENTATION FOR MEDICATION ADMINISTRATION TIMES AND INTRA/POST PROCEDURE SEDATION ASSESSMENTS.
--- NOTE | 2020-09-01 11:51 | NUR ---
Pt back to [facility] from labor and delivery registered nurse. pt is drowsy, but alert to verbal, oriented, reports back pain gone compared to how it was on his arrival. pt monitored, vss. daughter at bs. call light in reach. pt and daughter updated on poc for BR x 1 hr, and dc in 2 hours if stable. no concerns at this time. lunch ordered.
--- NOTE | 2020-09-01 14:00 | NUR ---
Pt is ready for discharge, he has been able to stand up and use urinal with assist x 1, and was able to walk out into nurses station with walker with his normal gait. pt did report some back pain with ambulation, but in general, his back pain is much improved with the procedure. I have reviewed dc/fu instructions with pt and daughter, no questions. iv is dc'd with cath intact, dressing is applied. bandaid to puncture site on back replaced as there was small amt dry bloody drainage on bandaid. no bleeding from site at this time, no redness etc. pt is escorted to exit via wheelchair.
== END 2020-09-01 18:11 | disposition home or self-care (01) ==
LOC: COL.CAR 08:32
DX: S32.030A Wedge compression fracture of third lumbar vertebra, initial encounter for closed fracture (principal); M81.0 Age-related osteoporosis without current pathological fracture; I51.9 Heart disease, unspecified; Z95.818 Presence of other cardiac implants and grafts; Z79.4 Long term (current) use of insulin; Z79.890 Hormone replacement therapy; Z79.82 Long term (current) use of aspirin; Z79.891 Long term (current) use of opiate analgesic; Z79.02 Long term (current) use of antithrombotics/antiplatelets; Z83.3 Family history of diabetes mellitus; Z87.891 Personal history of nicotine dependence; Z20.822 Contact with and (suspected) exposure to COVID-19
CPT/HCPCS: C1713; J2250; J3010; J7120

== ENCOUNTER 2020-12-27 06:34 | Outpatient (CLI) | payer MEDICARE ==
[2020-12-27] VITALS (16 sets, daily range): BP systolic 98–217; BP diastolic 55–736; PULSE 64–88; TEMP 98.2
[~2020-12-27] VITALS: Ht 185.5 cm; Wt 71.0 kg
--- NOTE | 2020-12-27 09:55 | NUR ---
Pt to ct per techs, Monitors applied, O2 on at 2l/nc. Pt in prone position.
--- NOTE | 2020-12-27 10:00 | NUR ---
Dr Ramos in to view films and talk with pt.
--- NOTE | 2020-12-27 10:35 | NUR ---
Specimen obtained and Dr Ramos placed specimen in formalin. Specimen labeled.
--- NOTE | 2020-12-27 12:27 | NUR ---
Pt assisted with walker, gait belt and x1 assist to toilet in room. Gait steady with assistance. Bandaid to biopsy site on back remains clean, dry and intact. He is free of complaints. Skin tears x2 on rt elbow and forearm that occured while pt was transferring from CT table back to bed were redressed and cleansing with sterile water and surgiscrub. Dressed with telfa and covered with large tegaderm. Wound cares discussed with pt and daughter, both express understanding. INT DC'd with catheter intact. Pt assisted out to daughter's truck by wheelchair with belongigns. He tolerated PO with out issue prior to discharging.
== END 2020-12-27 12:32 | disposition home or self-care (01) ==
LOC: COL.CAR 06:34
DX: M87.9 Osteonecrosis, unspecified (principal); G89.29 Other chronic pain; M54.5 Low back pain; R63.4 Abnormal weight loss; I25.10 Atherosclerotic heart disease of native coronary artery without angina pectoris; I50.33 Acute on chronic diastolic (congestive) heart failure; I48.0 Paroxysmal atrial fibrillation; E78.5 Hyperlipidemia, unspecified; I10 Essential (primary) hypertension; I73.9 Peripheral vascular disease, unspecified; I11.0 Hypertensive heart disease with heart failure; E11.9 Type 2 diabetes mellitus without complications; Z85.828 Personal history of other malignant neoplasm of skin; Z85.528 Personal history of other malignant neoplasm of kidney; Z85.020 Personal history of malignant carcinoid tumor of stomach; Z90.5 Acquired absence of kidney; Z90.49 Acquired absence of other specified parts of digestive tract; Z87.891 Personal history of nicotine dependence; Z79.02 Long term (current) use of antithrombotics/antiplatelets; Z79.890 Hormone replacement therapy; Z79.899 Other long term (current) drug therapy; Z79.82 Long term (current) use of aspirin; Z79.891 Long term (current) use of opiate analgesic; Z79.4 Long term (current) use of insulin
CPT/HCPCS: J2250; J3010

== ENCOUNTER 2021-01-11 10:24 | Outpatient (CLI) | payer MEDICARE ==
[~2021-01-11] VITALS: Ht 185.5 cm; Wt 75.5 kg
[2021-01-11] VITALS (10 sets, daily range): BP systolic 104–204; BP diastolic 65–99; PULSE 61–69; TEMP 97.9
--- NOTE | 2021-01-11 13:26 | NUR ---
SEE MERGE FOR ALL MEDICATION ADMINISTRATION TIMES, INTRA AND POST SEDATION ASSESSMENTS
--- NOTE | 2021-01-11 13:38 | NUR ---
Pt is back from cath lab radiology technician s/p vertebroplasty. Pt is awake and alert, pwd with reg and unlabored respirations. pt has no complaints, cms intact to lower extremities. Pt updated on poc, and I called pt's daughter to update her as well. call light in reach. lunch ordered.
--- NOTE | 2021-01-11 13:38 | NUR ---
Pt is back to express from lab support tech s/p vertebroplasty. Pt is comfortable, awake and alert, pwd with reg and unlabored respirations. call light in reach. lunch ordered.
--- NOTE | 2021-01-11 16:15 | NUR ---
Pt is ready for departure. Pt did well during his recovery. He did sleep for a while, then was able to eat lunch. Daughter is at bs now, and I reviewed dc instructions with pt and his daughter. IV is dc'd with cath intact, dressing applied. We visualized pucture sites to back, and they were dressed wtih clean and dry bandaids, no drainage from sites at this time. Pt reports back pain better. he was able to transfer to wheelchair with assist x 2 which is his baseline at this time. to exit via wheelchair.
== END 2021-01-11 16:15 | disposition home or self-care (01) ==
LOC: COL.CAR 10:24
DX: M87.88 Other osteonecrosis, other site (principal); M48.54XA Collapsed vertebra, not elsewhere classified, thoracic region, initial encounter for fracture; M54.9 Dorsalgia, unspecified
CPT/HCPCS: C1713; J1644; J2250; J3010; J7050